=== PATIENT | female | born 1975 | race Caucasian/White ===

== ENCOUNTER 2018-12-20 11:35 | Inpatient (IN) ==
--- NOTE | 2018-12-20 12:19 | Diag Imaging Result Doc PS360 ---
CT HEAD W/O CONTRAST - 12/20/2018 INDICATION: stroke like sx COMPARISON: None FINDINGS: The ventricles and sulci are normal in size and contour. No intracranial mass or hemorrhage. The skull is intact. The sinuses mastoids and middle ears are clear. IMPRESSION: Negative exam. This exam was performed using automated exposure control, adjustment of mA or kV according to patient size, and/or use of iterative reconstruction technique Electronically signed by Rosendo Barros 12/20/2018 12:17 PM
[2018-12-20 14:16] LABS: BASO# 0.24 X1000 (0.0-0.2); BASO% 3.3 % (0.0-0.8); EOS# 0.08 X1000 (0.0-0.7); EOS% 1.1 % (0.0-10.0); HEMATOCRIT 38.7 % (37.0-47.0); HEMOGLOBIN 12.9 g/dL (12.0-16.0); IMM GRAN# 0.01 X1000 (0.0-0.04); IMM GRAN% 0.1 % (0.0-0.5); LYMPH# 1.48 X1000 (1.2-3.4); LYMPH% 20.1 % (20.5-51.1); MCH 28.7 PG (27-31); MCHC 33.3 g/dL (33-37); MONO# 0.83 X1000 (0.11-0.59); MONO% 11.2 % (1.7-9.3); MPV 10.2 FL (7.4-10.4); NEUT# 4.74 X1000 (1.4-6.5); NEUT% 64.2 % (42.2-75.2); PLT 519 X1000 (130-400); RDW 14.9 % (11.5-14.5); WBC 7.38 X1000 (4.8-10.8)
[2018-12-20 14:31] LABS: LYMPHS 24 % (21-51); MONO 6 % (1-9); SEGS 70 % (42-75)
[2018-12-20 14:32] LABS: LARGE PLATELETS OCCASIONAL; OVALOCYTES OCCASIONAL; POIKILOCYTOSIS OCCASIONAL
[2018-12-20] MEDS ORDERED: NS 1,000 ML IV PRN (14:39)
[2018-12-20] MEDS ORDERED: TYLENOL PO PRN (14:39)
[2018-12-20] MEDS ORDERED: ZOFRAN IV PRN (14:39)
[2018-12-20 14:40] LABS: AGAP 12; ALBUMIN 4.7 g/dL (3.5-5.0); ALKALINE PHOSPHATASE 53 U/L (32-104); BUN 12 mg/dL (8-22); CALCIUM 9.6 mg/dL (8.8-10.2); CHLORIDE 105 mmol/L (98-107); COSMO 277; CREATININE 0.7 mg/dL (0.5-0.9); ESTIMATED GFR > 60; GLUCOSE 89 mg/dL (70-104); GOT 13 U/L (10-30); GPT 10 U/L (10-36); POTASSIUM 4.4 mmol/L (3.5-5.1); SODIUM 139 mmol/L (136-145); TCO2 22 mmol/L (25-35); TOTAL PROTEIN 7.6 g/dL (6.3-8.3)
--- NOTE | 2018-12-20 15:37 | EKG Report ---
Test Performed on : 12/20/2018 12:21:35 PM Test Reason : bradycardia Blood Pressure : / mmHG Vent. Rate : 056 BPM Atrial Rate : 056 BPM P-R Int : 226 ms QRS Dur : 100 ms QT Int : 454 ms P-R-T Axes : 012 021 004 degrees QTc Int : 438 ms Sinus bradycardia. with 1st degree AV block. T wave abnormality, consider anterior ischemia Abnormal ECG No previous ECGs available Unconfirmed Result
--- NOTE | 2018-12-20 15:50 | Diag Imaging Result Doc PS360 ---
EXAM: MRA BRAIN W/O CONTRAST HISTORY: cva TECHNIQUE: 3-D dikr-rp-dynghn images without contrast. COMPARISON: None. FINDINGS: Large arteries of the [place] are grossly patent including bilateral distal internal carotid arteries, basilar artery, posterior cerebral arteries, anterior cerebral arteries, and middle cerebral arteries. The bilateral posterior communicating arteries are not identified, normal variant. No aneurysm is appreciated. No vascular occlusion. IMPRESSION: Normal MRA of the brain. Electronically signed by Lisa Biggs 12/20/2018 3:48 PM
--- NOTE | 2018-12-20 16:05 | Diag Imaging Result Doc PS360 ---
EXAM: MRI BRAIN W/WO CONTRAST HISTORY: cva TECHNIQUE: Routine with and without contrast. COMPARISON: CT brain 12/20/2018 FINDINGS: There are no extra-axial collections. There is no abnormal signal within the brainstem, cerebellum, or cerebral hemispheres. Diffusion images show no evidence for acute infarct. Susceptibility images show no evidence for hemorrhage. There are no abnormal regions of contrast enhancement. IMPRESSION: Normal MRI of the brain with and without contrast. Electronically signed by Lisa Biggs 12/20/2018 4:03 PM
[2018-12-20] MEDS ORDERED: PLAVIX PO ONE (17:00)
[2018-12-20] MEDS ORDERED: TOPAMAX PO SCH (17:00)
--- NOTE | 2018-12-20 17:37 | Extremity Venous Study ---
EXAM: Carotid Ultrasound INDICATION: cva TECHNIQUE: COMPARISON: None. FINDINGS: Right: There is no significant atherosclerotic disease involving the right carotid system on grayscale images. The peak systolic velocity measures 117, 87, 66, 59, 56, 82, and 69 cm/s at the right subclavian artery, CCA, bifurcation, proximal ICA, mid ICA, distal ICA, and ECA, respectively. There is antegrade flow in the vertebral artery. The carotid ratio is 0.94. Left: There is no significant atherosclerotic disease involving the left carotid system on grayscale images. The peak systolic velocity measures 110, 95, 68, 54, 67, 54, and 63 cm/s at the left subclavian artery, CCA, bifurcation, proximal ICA, mid ICA, distal ICA, and ECA, respectively. There is antegrade flow in the vertebral artery. The carotid ratio is 0.71. IMPRESSION: No evidence of hemodynamically significant carotid stenosis by Doppler. Electronically signed by Pancho Avalos 12/20/2018 5:35 PM
--- NOTE | 2018-12-20 18:34 | PROVIDER DOCUMENTATION ---
This chart was entered by Jaquelin Dewey Scribe, acting as scribe for Caitlin Ngo MD. HPI-General Adult - General Chief Complaint: Stroke-Like Symptoms Stated Complaint: STROKE SX Time Seen by Provider: 12/20/18 12:10 Source: patient, family () Allergies/Adverse Reactions: Patient Allergies Allergy/AdvReac Type Severity Reaction Status Date / Time Penicillins Allergy Unknown Verified 12/20/18 12:03 - History of Present Illness -Gen Adult Nature of Presenting Problems: 43 yowf presents to the ed with her with c/o unable to speak. pt is mouthing but not having a voice. pt sts onset was noted when she was in the car and could not sing with the radio. pt at first sts left sided numbness and unable to use but on exam is moving all extremities and has no weakness or issue. pt is texting on her phone to speak with dr ngo. pt is grasping a cup of water with left hand and drinking without difficulty. pt can stand and move BLE at baseline. pt can make noise when she laughs but can not speak. pt is nontoxic in appearance and is snapping her fingers at her to get his attention. pt sees a neurologist in [place] dr marin. pt has hx of seizures. pt CT is negative and in past had negative MRI with same sx in 2016 Location of Pain/Injury: reports: none Pain Radiation: reports: no radiation Quality of Pain: reports: none Severity: reports: mild Onset/Duration: reports: this morning (1030am) Timing: reports: still present (pt can not speak) Context/Activities at Onset: reports: light activity Modifying Factors: improves with: nothing Associated Symptoms: reports: other (unable to speak and left sided numbness). denies: back/neck pain, chest pain, cough, diaphoresis, diarrhea, fever/chills, nausea, shortness of breath, vomiting, weakness Similar Symptoms Previously?: Yes (2016) Recently seen or treated by another doctor?: No Review of Systems - Adult - REVIEW OF SYSTEMS - ADULT ROS:: limited per condition (pt can not speak and types in phone with left hand to communicate) Constitutional: reports: no symptoms reported Eyes: denies: blurred vision, double vision Ears, Nose, Mouth & Throat: reports: no symptoms reported Cardiovascular: denies: chest pain, palpitations Respiratory: denies: cough, shortness of breath, wheezing Gastrointestinal: denies: abdominal pain, diarrhea, nausea, vomiting Genitourinary: reports: no symptoms reported Musculoskeletal: denies: back pain, neck pain Integumentary: reports: no symptoms reported Neurological: reports: see HPI, numbness (left side). denies: ataxia, dizziness/vertigo, headache/migraines, loss of balance, paresthesia, seizure, slurred speech (no speech), syncope, tremors Psychiatric: reports: no symptoms reported Endocrine: reports: no symptoms reported Hematologic/Lymphatic: reports: no symptoms reported Allergic/Immunologic: reports: no symptoms reported All Other Systems: Reviewed and Negative Past History - Adult - PAST MEDICAL HISTORY-ADULT Review of Records: reports: Nursing Assessment Review, Medications Reviewed Major Childhood Illnesses: reports: denies history Cardiovascular: reports: HTN Respiratory: reports: denies history Gastrointestinal: reports: denies history Obstetrical/Gynecological: reports: denies history Genitourinary: reports: denies history Musculoskeletal: reports: denies history Neurological: reports: Seizures/Epilepsy, TIA Psychiatric: reports: denies history Endocrine/Immune: reports: denies history Other Conditions: reports: denies history - PRIOR SURGERIES/PROCEDURES Surgical/Procedure History: reports: other (cardiac ablasion) - IMMUNIZATION STATUS Childhood Immunizations: See Nurse Assessment Flu Vaccine: See Nurse Assessment - FAMILY HISTORY Family History: reviewed, not pertinent - SOCIAL HISTORY Smoking: quit less than 1 year Substance Use: alcohol Alcohol Use Frequency: 3-4 times a week Number of drinks per typical drinking period:: 3-4 drinks Living Situation: family Physical Exam-General - PHYSICAL EXAM-ADULT Initial Vital Signs Reviewed: Yes - CONSTITUTIONAL General Appearance: appears well, alert, no apparent distress, obese - EYES Eyes: PERRL/EOMI, pink conjunctivae - HEAD, EARS, NOSE, MOUTH & THROAT HENMT: normocephalic/atraumatic, moist mucous membranes, normal ENT inspection - NECK Neck: non-tender, full range of motion, supple, normal inspection - RESPIRATORY Respiratory: chest non-tender, lungs clear, normal breath sounds, no pleuratic chest pain, no respiratory distress - CARDIOVASCULAR Cardiovascular: normal peripheral pulses, regular rate, rhythm, no edema, no gallop, no JVD, no murmur - GASTROINTESTINAL (ABDOMEN) Abdominal Exam: normal bowel sounds, non tender, soft - LYMPHATIC Lymphatic: no adenopathy - MUSCULOSKELETAL Back Exam: normal inspection, no CVA tenderness, no vertebral tenderness Extremity: normal range of motion, non-tender, normal gait, normal inspection, no pedal edema, no calf tenderness, normal capillary refill, pelvis stable - SKIN Integumentary: normal color, normal turgor, warm/dry - NEUROLOGIC Neurologic: grossly normal, no motor/sensory deficits - PSYCHIATRIC Psych/Mental Status: normal mood/affect, normal thought content, normal thought process, oriented x 3 Progress - PLAN OF CARE/RESULTS Progress/Plan/Lab Results: Vital Signs - 8 hr 12/20/18 11:50 Temperature 98.2 F Pulse Rate 71 Respiratory Rate 18 Blood Pressure 149/100 O2 Sat by Pulse Oximetry 99 Orders Category Date Time Status CT HEAD W/O CONTRAST [CT] Stat Exams 12/20/18 12:01 Completed - REASSESSMENT Reassessment #1 Time Reassessed: 12:56 (pt still unable to speak) Status: unchanged Reassessment #2 Time Reassessed: 13:41 (pt still unable to speak but in no distress) Status: unchanged - EKG 1 Time of EKG reading by physician:: 12:21 EKG Read and Signed by:: Caitlin Ngo EKG Interpretation (*Must complete 3 of following elements*): Abnormal Rate: 56 Rhythm: sinus bradycardia with 1st degree av block Daisy: normal QRS: normal NM Interval: normal ST Wave: normal Comments: t wave abnormlaity - CT/MRI 1 CT Study: Head Impression: See EMR Report (CT HEAD W/O CONTRAST - 12/20/2018 INDICATION: stroke like sx COMPARISON: None FINDINGS: The ventricles and sulci are normal in size and contour. No intracranial mass or hemorrhage. The skull is intact. The sinuses mastoids and middle ears are clear. IMPRESSION: Negative exam. This exam was performed using automated exposure control, adjustment of mA or kV according to patient size, and/or use of iterative reconstruction technique Electronically signed by Rosendo Barros 12/20/2018 12:17 PM 12/20/18 1217 Interpreting Physician: Rosendo Barros MD Dictated Date/Time: 12/20/18 1216 cc: Caitlin Ngo MD; PEDRO,BEV [place]) - CONSULTS/PCP/HOSPITALIST Notification #1 *Consult/PCP/Hospitalist*: hospitalist dr sharif Time Discussed: 13:56 Reason/Comments: aphasia and bradycardia Consult Disposition: Admit Departure - Departure Date of Disposition Decision: 12/20/18 Time of Disposition Decision: 13:55 DIAGNOSIS: Aphasia, Bradycardia Disposition: ADMITTED INPATIENT 09 Certified Medical Emergency: Emergent Condition: Stable Additional Freetext Instructions: ED Follow Up Instructions: You have been treated by a care provider in the Emergency Department. These instructions are being provided to you so you can have an understanding of how to care for yourself upon discharge. Upon discharge from the Emergency Department, you are responsible for making arrangements for follow-up care by a physician of your choice. Take all prescribed medications as directed. Return to the Emergency Department immediately for any new or worsening symptoms. You may call the Physician Referral phone number at [phone] to obtain a list of Physicians who are taking new patients. Referrals and Follow-Ups: BEV VASQUEZ [Primary Care Provider] - - Critical Care Note This patient required my direct & personal management of CC.: No Attestation - Physician/ CYNTHIA Attestation Patient care was provided by Advanced Practice Provider:: No The physician spent face to face time with patient:: Yes Advanced Practice Provider documentation review:: Supervising physician onsite and consulted in the evaluation and care of this patient. The physician did have a face to face encounter with the patient. This chart was documented by the indicated scribe, (Jaquelin Dewey Scribe) and accurately reflects the services I performed and decisions made by me, Caitlin Ngo MD, as attested by the provider's signature.
--- NOTE | 2018-12-20 19:47 | HISTORY AND PHYSICAL ---
ADDENDUM: Apparently, the patient was driving and she had an acute episode of confusion, with now left-sided facial numbness, weakness, and then aphonia. She just could not speak. This lasted for a little bit. She was worked up in the ER and was really unremarkable. She had an MRI and MRA which were unremarkable. When we examined her this evening during her carotid echo test, her workup is negative. Cranial nerves 2-12 were grossly intact. Questionable, she had seizures or a TIA. We will get a CT seizure evaluation tomorrow and follow. If all her testing is negative, I anticipate discharge tomorrow. This is a [id number] encounter note with Xiomara Mcmahon. cc: Galen Montgomery MD
[2018-12-20 20:44] LABS: BILIRUBIN URINE NEGATIVE (NEGATIVE); BLOOD URINE 2+ (NEGATIVE); GLUCOSE URINE NEGATIVE (NEGATIVE); KETONE URINE 2+(Moderate) mg/dL (NEGATIVE); SP GRAVITY URINE 1.015
[2018-12-20 20:45] LABS: CLARITY CLEAR (CLEAR); COLOR YELLOW; LEUKOCYTES URINE NEGATIVE (NEGATIVE); NITRITE URINE NEGATIVE (NEGATIVE); PROTEIN URINE NEGATIVE (NEGATIVE); UROBILINOGEN URINE NORMAL
[2018-12-20 20:47] LABS: UR AMPHETAMINES QUAL NONE DETECTED (NONE DETECT); UR BARBITUATES QUAL NONE DETECTED (NONE DETECT); UR BENZODIAZEPIN QUAL NONE DETECTED (NONE DETECT); UR CANNABINOIDS QUAL NONE DETECTED (NONE DETECT); UR COCAINE QUAL NONE DETECTED (NONE DETECT); UR METHADONE QUAL NONE DETECTED (NONE DETECT); UR METHAMPHETAMINE QUAL NONE DETECTED (NONE DETECT); UR OPIATES QUAL NONE DETECTED (NONE DETECT); UR OXYCODONE QUAL NONE DETECTED (NONE DETECT); UR PCP QUAL NONE DETECTED (NONE DETECT); UR PROPOXYPHENE QUAL NONE DETECTED (NONE DETECT); UR TCA QUAL NONE DETECTED (NONE DETECT)
[2018-12-20 20:49] LABS: URINE BACTERIA 1+ /HFP; URINE EPITHELIAL CELLS <10 /HPF (<10)
--- NOTE | 2018-12-20 20:49 | HISTORY AND PHYSICAL ---
PRIMARY CARE PROVIDER: Dr. Anthony Rodriguez. NEUROLOGIST: Dr. Thompson out of [place]. CHIEF COMPLAINT: Left-sided numbness and tingling along with aphasia. HISTORY OF PRESENT ILLNESS: Ms. 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 She now presents with symptoms that started at 10:30 that involved feeling funny, unable to sing along to the radio, left face, arm, and leg numbness and tingling with increased weakness on that side. She states that she normally does have weakness on that side but is much more pronounced at this time. The symptoms are starting to resolve. She is now able to speak and follow all commands. She does have a murmur when auscultating her heart sounds. So, will admit to the medical floor. Monitor her overnight. Will resume her back on Plavix that she used to take. Continue her on her aspirin as well. PAST MEDICAL HISTORY: 1. Hypertension. 2. Obstructive sleep apnea, on nightly CPAP. 3. 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 4. TIAs, about three to four a year, according to her the first one being 09/02/2015, although she states she has not had one in the past year. 5. Migraines. 6. History of ITP with splenectomy. 7. History of syncope with PFO closure. PAST SURGICAL HISTORY: 1. Appendectomy. 2. Cholecystectomy. 3. Splenectomy. 4. Bilateral tubal ligation. 5. Uterine ablation. 6. PFO closure December 2015 at [facility]. 7. Cardiac ablation. SOCIAL HISTORY: Quit smoking seven years ago, but she used to smoke since the age of 17, but very lightly, it was less than a pack in a week. She drinks about four beers a week. Denies any illicit drug use. She currently works at a [employer] and is . FAMILY HISTORY: Father had stroke, diabetes, congestive heart failure, and hypertension. Mother had sick sinus syndrome with permanent pacemaker, diabetes, and hypertension. ALLERGIES: Penicillin, apparently at a young age it caused her to have some temporary lower extremity paralysis. HOME MEDICATIONS: 1. Aspirin 81 mg p.o. daily. 2. Coreg 3.125 mg p.o. twice daily. 3. Clonidine 0.1 mg one tablet p.r.n. for systolic greater than 180. 4. Lisinopril 20 mg p.o. daily. 5. Sumatriptan 50 mg one to two tablets p.o. p.r.n. for migraines. 6. Topamax 25 mg p.o. daily at 5:00 p.m. 7. Ambien 10 mg p.o. nightly. REVIEW OF SYSTEMS: A 14-point review of systems are complete and all were negative except for those mentioned above in HPI. PHYSICAL EXAMINATION: VITAL SIGNS: Temperature 97.9, heart rate 69, respiratory rate 18, blood pressure 140/93, O2 saturation 100% on room air. GENERAL: Ms. Jovana Pham is a 43-year-old female. She is in no acute distress. She is able to answer questions appropriately. HEENT: Atraumatic, normocephalic. Pupils equal, round, and reactive to light. Extraocular movements intact. Mucous membranes are moist. Still with numbness and tingling on the left face. NECK: Trachea midline. CARDIOVASCULAR: S1, S2 regular rate and rhythm with about a 2/6 systolic ejection murmur. No rubs or gallops. No lower extremity edema. +2 dorsalis and radial pulses. Negative for JVD or carotid bruits. PULMONARY: Clear to auscultate, bilateral breath sounds. No accessory muscle use or work of breathing noted. GASTROINTESTINAL: Soft, nontender, nondistended, positive bowel sounds x4. EXTREMITIES: Moves all extremities but with weakness of the left upper and lower extremity. Right upper and lower is 5/5. Left upper and lower is about 4/5 with full range of motion, but jerky movements in the left lower extremity with movement. NEUROLOGIC: Alert and oriented x3. Follows commands. Sensory is intact except for the numbness and tingling along the left side of the body and the left face. SKIN: Warm, dry, intact. LABORATORY DATA: White blood cells 7000, hemoglobin 12, hematocrit 38, platelet count 519. Sodium 139, potassium 4.4, BUN 12, creatinine is 0.7, glucose 89, bilirubin 0.30, AST 13, ALT 10. Troponin less than 0.01. Albumin 4.7. TSH 1.25. Serum negative. IMAGING: Head CT negative. Normal MRA of the brain. Normal MRI of the brain. Carotid ultrasound not available yet. Echocardiogram not available yet. EKG with sinus bradycardia with first-degree AV block. Rate is 56. QTc 438. ASSESSMENT AND PLAN: 1. Likely transient ischemic attack. Symptoms are resolving. She has a history of transient ischemic attacks with her patent foramen ovale and closure. She used to be on Plavix for that. Could be a seizure. She does have an ischemic type seizure disorder but none recently. Either way, will continue her on her aspirin and will add back the Plavix. 2. Hypertension. Continue Coreg and lisinopril. 3. Seizure disorder. Continue Topamax. 4. History of immune thrombocytopenia with splenectomy, now with thrombocytosis, platelet count 519,000. She will be on Plavix for now. 5. Obstructive sleep apnea. Continue nightly CPAP. Dictated by VICKI Reynolds for Galen Montgomery MD cc: VICKI Reynolds MD
[2018-12-20 20:50] LABS: URINE CAST NONE SEEN /LPF; URINE CRYSTAL NONE SEEN /HPF; URINE SOURCE CLEAN CATCH; URINE WBC <10 /HPF (<10); URINE YEAST NONE SEEN /HPF
[2018-12-20] MEDS: COREG PO SCH (21:31)
--- NOTE | 2018-12-20 22:39 | ECHO REPORT ---
ORDER DATE: 12/20/2018 MEASUREMENTS: Septal thickness 0.8, left ventricular internal diameter diastole 5.0, aortic root 2.9, left atrium 3.2. SUMMARY: 1. Adequate quality study. 2. Aortic valve is trileaflet and opens normally on 2-dimensional images. Peak gradient across aortic valve is less than 10 mmHg. Mitral, tricuspid, and pulmonic valves are without evidence of structural abnormality with mild mitral regurgitation, trace tricuspid regurgitation, and mild pulmonic insufficiency. Aortic root is normal size. 3. Normal left ventricular dimensions demonstrated. Estimated left ejection fraction appears to be at least 65%. No regional wall motion abnormalities evident. Left atrium, right atrium, right ventricle are normal in size with normal right ventricular systolic function. 4. No pericardial effusion. 5. Appearance of inferior vena cava suggests normal central venous pressure. cc: MD Xiomara Kearns CRNP
[2018-12-21 07:22] LABS: BASO# 0.29 X1000 (0.0-0.2); BASO% 3.4 % (0.0-0.8); EOS# 0.16 X1000 (0.0-0.7); EOS% 1.9 % (0.0-10.0); HEMATOCRIT 38.5 % (37.0-47.0); HEMOGLOBIN 12.9 g/dL (12.0-16.0); IMM GRAN# 0.02 X1000 (0.0-0.04); IMM GRAN% 0.2 % (0.0-0.5); LYMPH# 1.71 X1000 (1.2-3.4); MCH 28.7 PG (27-31); MCHC 33.5 g/dL (33-37); MCV 85.7 FL (81-99); MONO# 1.28 X1000 (0.11-0.59); MONO% 14.9 % (1.7-9.3); NEUT# 5.11 X1000 (1.4-6.5); NEUT% 59.6 % (42.2-75.2); PLT 632 X1000 (130-400); RBC 4.49 XMIL (4.2-5.4); RDW 14.9 % (11.5-14.5); WBC 8.57 X1000 (4.8-10.8)
[2018-12-21 07:34] LABS: INR 1.02; PROTIME 13.9 Seconds (11.0-16.0)
[2018-12-21 07:35] LABS: PTT 29.6 Seconds (22.3-41.8)
[2018-12-21 08:05] LABS: AGAP 12; BUN 11 mg/dL (8-22); CALCIUM 9.8 mg/dL (8.8-10.2); CHLORIDE 105 mmol/L (98-107); COSMO 274; CREATININE 0.7 mg/dL (0.5-0.9); GLUCOSE 119 mg/dL (70-104); POTASSIUM 3.9 mmol/L (3.5-5.1); SODIUM 137 mmol/L (136-145); TCO2 20 mmol/L (25-35)
[2018-12-21 08:06] LABS: ALBUMIN 4.3 g/dL (3.5-5.0); ALKALINE PHOSPHATASE 50 U/L (32-104); GOT 11 U/L (10-30); GPT 9 U/L (10-36); MAGNESIUM 1.9 mg/dL (1.5-2.7); TOTAL PROTEIN 7.2 g/dL (6.3-8.3)
[2018-12-21 08:09] LABS: ANISOCYTOSIS 1+; LYMPHS 18 % (21-51); MONO 7 % (1-9); SEGS 75 % (42-75)
[2018-12-21] MEDS ORDERED: PLAVIX PO SCH (09:00)
[2018-12-21] MEDS ORDERED: NORVASC PO SCH (09:00)
[2018-12-21] MEDS ORDERED: ASPIRIN PO SCH (09:00)
[2018-12-21] MEDS ORDERED: PRINIVIL PO SCH (09:00)
[2018-12-21] MEDS: COREG PO SCH (09:08)
[2018-12-21 15:27] VITALS: BP 128/85
--- NOTE | 2018-12-22 17:02 | DISCHARGE SUMMARY ---
ADMISSION DATE: 12/20/2018 DISCHARGE DATE: 12/21/2018 ADDENDUM: Briefly, this a 43-year-old female who had an episode of inability to speak, left-sided weakness, numbness, possible TIA. When we evaluated her later that day, her exam was completely normal. She has had intermittent episodes like this before which have been attributed either to TIAs or migraines. Unclear etiology. We observed her. Her MRI, MRA, carotid, echocardiogram, all of her testing was essentially unremarkable. We did discharge her on her regular medications in addition to Plavix. Discharge condition is stable. We will continue to follow closely. This is a [id number] encounter note with VICKI Reynolds. cc: Galen Montgomery MD
--- NOTE | 2018-12-22 17:24 | DISCHARGE SUMMARY ---
ADMISSION DATE: 12/20/2018 DISCHARGE DATE: 12/21/2018 ADMISSION DIAGNOSIS: 1. Transient ischemic attack symptoms resolving, possible seizure. 2. Hypertension. 3. Seizure disorder. 4. History of immune thrombocytopenia with splenectomy now with thrombocytosis. 5. Obstructive sleep apnea. DISCHARGE DIAGNOSIS: 1. Transient ischemic attack versus seizure. Apparently all of her imaging have been worked up showing nothing acute. 2. Hypertension. 3. Seizure disorder. 4. History of idiopathic thrombocytopenia with splenectomy. 5. Obstructive sleep apnea. CONSULTATIONS: None. HOSPITAL COURSE: Ms. Jovana Pham is a 43-year-old female with a medical history of hypertension, obstructive sleep apnea, seizure disorder due to questionable ischemic events, TIAs, migraines. Had presented with complaints of aphonia unable to speak, left-sided facial arm and leg numbness and tingling, also with weakness on that side. Essentially all imaging was reported as negative. There were no acute findings. She does have a history of a PFO with closure in December 2015 and apparently has some TIAs from that incident as well. She is going to be started back on her Plavix as this appears to be what is causing her symptoms of TIA, when she 1st had her closure performed she was on Plavix for a year and has been off of it now having TIAs which she states she does not even go to the hospital every time it happens because it resolved so fast. Course there is a question of whether this is seizure or not but it is really unclear, there was never loss of consciousness or bowel or bladder. Now symptoms have resolved. She will be discharged home. DISCHARGE VITAL SIGNS: Temperature 98.2 degrees, heart rate 72, respiratory rate 20, blood pressure 128/85, O2 saturation 99% on room air. DISCHARGE LAB DATA: White blood cells 8000, hemoglobin 12, hematocrit 38, platelet count 632,000. INR is 1.02, PTT is 29.6, sodium 137, potassium 3.9, BUN 11, creatinine 0.7, glucose 119, calcium 9.8, magnesium 1.9, bilirubin 0.40, AST 11, ALT 9, ammonia 31. Troponin less than 0.01, CRP 5, albumin 4.3. Urine drug screen was negative. PERTINENT IMAGING: Head CT negative, brain MRA negative, brain MRI negative, carotid ultrasound no stenosis. Echocardiogram ejection fraction 65% otherwise normal, EKG sinus bradycardia with a first-degree AV block, heart rate 56, QTc 438. DISCHARGE MEDICATIONS: 1. Amlodipine besylate 5 mg p.o. daily. 2. Enteric-coated aspirin 81 mg p.o. daily. 3. Clonidine 0.1 mg p.o. p.r.n. for systolic of 180. 4. Coreg 3.125 mg p.o. twice daily. 5. Lisinopril 20 mg p.o. daily. 6. Topiramate 25 mg p.o. nightly. 7. Plavix 75 mg p.o. daily. DISCHARGE DIET: Heart healthy. DISCHARGE FOLLOWUP: Primary care provider Anthony Rodriguez. DISCHARGE ACTIVITY: As tolerated. DISCHARGE INSTRUCTIONS: If your condition changes contact physician and/or return to the emergency department. Changes may include but are not limited to shortness of breath, increased fatigue, excessive bleeding, unexplained weight loss or gain, unmanageable pain, signs or symptoms of infection. DISCHARGE DISPOSITION: Home. Dictated by VICKI Reynolds for Galen Montgomery MD cc: VICKI Reynolds MD
== END 2018-12-21 17:33 | disposition home or self-care (01) | DRG 69 ==
LOC: P.ED 11:35 → P.MEDSURG 14:53
PROVIDERS: ATTEND Internal Medicine
CPT/HCPCS: 70450; 70544; 70553; 80053; 80104; 80301; 80305; 81001; 82140; 83605; 83735; 84443; 84484; 84703; 85025; 85610; 85651; 85730; 86140; 93005; 93306; 93880; 94660; A9270; A9579; G0431; G0434; G0477